=== PATIENT | female | born 2005 | race Hispanic/Latino ===

== ENCOUNTER 2024-04-06 18:26 | Emergency (ER) | payer MEDICAID, SELFPAY ==
[2024-04-06] MEDS ORDERED: Ibuprofen 800 MG TAB ONE (19:47)
== END 2024-04-06 19:50 | disposition home or self-care (01) ==
LOC: ERS 18:26
DX: H66.93 Otitis media, unspecified, bilateral (principal); H60.93 Unspecified otitis externa, bilateral
CPT/HCPCS: 99282